=== PATIENT | male | born 1960 | race Caucasian/White ===

== ENCOUNTER 2019-04-06 17:17 | Emergency (ER) | payer MEDICARE, OTHER ==
[~2019-04-06] VITALS: Ht 182.9 cm; Wt 61.4 kg
[2019-04-06] MEDS ORDERED: INSLAN SQ (18:30)
[2019-04-06] MEDS ORDERED: INSU100V SQ (18:30)
[2019-04-06] MEDS ORDERED: FAMO20 PO (18:30)
[2019-04-06 19:22] LABS: BASOPHILS % (AUTO) 1.1 % (0.0-2.0); EOSINOPHILS % (AUTO) 0.8 % (1.0-6.0); HEMOGLOBIN 13.2 g/dL (13.5-17.5); LYMPHOCYTES # (AUTO) 1.9 K/uL (1.0-4.8); LYMPHOCYTES % (AUTO) 29.1 % (22.0-44.0); MEAN CORPUSCULAR HEMOGLOBIN 27.5 pg (26.0-34.0); MEAN CORPUSCULAR HGB CONC 33.1 G/dL (31.0-37.0); MEAN CORPUSCULAR VOLUME 83 fL (80-100); MONOCYTES # (AUTO) 0.4 K/uL (0.1-1.0); MONOCYTES % (AUTO) 6.7 % (2.0-9.0); NEUTROPHILS # (AUTO) 4.1 K/uL (1.8-7.7); NEUTROPHILS % (AUTO) 62.3 % (40.0-70.0); PLATELET COUNT (AUTO) 209 K/uL (150-450); RED BLOOD CELL COUNT(AUTO) 4.81 MIL/uL (4.50-5.90); RED CELL DISTRIBUTION WIDTH 18.9 % (11.5-14.5)
[2019-04-06] MEDS ORDERED: SODIUM CHLORIDE 0.9% 1,000 ML IV ONE (19:30)
[2019-04-06 19:45] LABS: ALBUMIN 4.1 g/dL (3.4-5.0); BILIRUBIN,TOTAL 0.7 mg/dL (0.1-1.0); CALCIUM, TOTAL 10.3 mg/dL (8.8-10.5); CREATININE 1.43 mg/dL (0.60-1.30); POTASSIUM 4.3 mmol/L (3.5-5.1); TOTAL PROTEIN, SERUM 8.2 g/dL (6.4-8.2)
[2019-04-06] MEDS ORDERED: INSULIN REGULAR, HUMAN 100 UNITS/ML IVP ONE (20:00)
[2019-04-06 21:09] LABS: GLUCOSE,POINT OF CARE 252 MG/DL (70-110)
[2019-04-06 22:00] VITALS: BP 126/74
== END 2019-04-06 22:18 | disposition home or self-care (01) ==
LOC: EMS 17:19
DX: E11.65 Type 2 diabetes mellitus with hyperglycemia (principal); R74.0 Nonspecific elevation of levels of transaminase and lactic acid dehydrogenase [LDH]; R74.8 Abnormal levels of other serum enzymes; K21.9 Gastro-esophageal reflux disease without esophagitis; Z79.899 Other long term (current) drug therapy; Z79.4 Long term (current) use of insulin; Z88.8 Allergy status to other drugs, medicaments and biological substances
CPT/HCPCS: 36415; 80053; 82948; 82962; 85025; 96361; 96374; 99283; J1815; J7030